=== PATIENT | female | born 1945 | race Caucasian/White ===

== ENCOUNTER 2020-05-09 13:12 | Outpatient (CLI) | payer MEDICARE | END 2020-05-09 23:59 | disposition home or self-care (01) | LOC: CFH 13:12 | PROVIDERS: ATTEND Nurse Practitioner Family | DX: I36.1 Nonrheumatic tricuspid (valve) insufficiency (principal); R94.2 Abnormal results of pulmonary function studies; R06.00 Dyspnea, unspecified | CPT/HCPCS: 71250; 93306 ==